=== PATIENT | male | born 2000 | race Caucasian/White ===

== ENCOUNTER 2024-11-28 21:39 | Emergency (ER) | payer OTHER, SELFPAY ==
[2024-11-28 22:01] VITALS: BP 145/91; PULSE 60; RESP 16; TEMP 36.7; O2SAT 99; BMI 24.3
[2024-11-28 22:39] LABS: Strep Grp A by PCR Rapid Negative (Negative)
--- NOTE | 2024-11-28 23:17 | ED.URI ---
HPI - URI/Sore Throat General Chief Complaint: Upper Respiratory Symptoms Stated Complaint: sore throat x 7 days Time Seen by Provider: 11/28/24 23:16 Source: patient Mode of arrival: Ambulatory History of Present Illness HPI Narrative: 24-year-old male presents for sore throat for the last 7 days. States that yesterday he felt improved, but when his throat pain returned he became concerned that it was strep throat. Denies other symptoms. Related Data Home Medications Medication Instructions Recorded Confirmed No Known Home Medications 11/28/24 11/28/24 Allergies Allergy/AdvReac Type Severity Reaction Status Date / Time No Known Drug Allergies Allergy Verified 11/28/24 22:01 Patient History Social History Smoking Status: Never smoker Smoking Status: Never smoker Exam Initial Vital Signs Initial Vital Signs: Vital Signs Temperature 98.1 F 11/28/24 22:01 Pulse Rate 60 11/28/24 22:01 Respiratory Rate 16 11/28/24 22:01 Blood Pressure 145/91 H 11/28/24 22:01 Pulse Oximetry 99 11/28/24 22:01 Oxygen Delivery Method Room Air 11/28/24 22:01 Const: Awake, alert, no acute distress, nontoxic appearing HEENT: mild pharyngeal erythema without edema or exudates Cardiac: regular rate, regular rhythm RESP: unlabored, clear bilaterally, no wheezing Skin: Warm, Dry, intact, no rashes Neuro: AO x3, CN II-XII grossly intact, moves all extremities Course Orders Ordered: ED Orders 11/28/24 22:02 Strep Grp A by PCR Rapid Stat Discontinued Medications Dexamethasone (Dexamethasone 10 Mg/Ml Vial) 10 mg PO NOW ONE Stop: 11/28/24 23:22 Last Admin: 11/28/24 23:27 Dose: 10 mg Documented By: LS Vital Signs Vital signs: Vital Signs - 8 hr 11/28/24 22:01 11/28/24 23:18 Temperature 98.1 F Pulse Rate 60 72 Respiratory Rate 16 18 Blood Pressure 145/91 H 129/83 Pulse Oximetry 99 98 Oxygen Delivery Method Room Air Room Air MDM - URI/Sore Throat Lab Data Labs: Lab Results 11/28/24 Range/Units 22:02 Group A Strep (PCR) Negative (Negative) MDM Narrative Medical decision making narrative: Well-appearing patient with 1 week of symptoms. Mild pharyngeal erythema on exam without edema or exudates. Strep swab negative, exam incongruent with strep. Patient advised that this is likely viral pharyngitis. Supportive measures counseled for home. Discharge Plan Departure Patient Disposition: Home Clinical Impression: Pharyngitis Instructions: DI for Viral Pharyngitis Activity Restrictions/Additional Instructions: Your strep test today was negative. This is likely a viral infection. Take Tylenol and ibuprofen as needed for pain or discomfort. You can also use warm saltwater gargles or tea with honey for throat pain. Prescriptions: No Action No Known Home Medications Referrals: Miscellaneous,Doctor, MD [Primary Care Provider] - Stand Alone Forms: Patient Portal/API/Survey
[2024-11-28 23:18] VITALS: BP 129/83; PULSE 72; RESP 18; O2SAT 98
[2024-11-28] MEDS: DEXAMETHASONE 10 MG/ML VIAL PO (23:27)
== END 2024-11-28 23:30 | disposition home or self-care (01) ==
PROVIDERS: Emergency Provider Emergency Medicine
DX: J02.9 Acute pharyngitis, unspecified (principal)
CPT/HCPCS: 87651; 99283; J1100